=== PATIENT | male | born 1985 | race Caucasian/White ===

== ENCOUNTER 2016-11-30 10:43 | Emergency (ER) | payer MEDICAID ==
[~2016-11-30] VITALS: Ht 175.3 cm; Wt 55.0 kg
[2016-11-30] MEDS ORDERED: ONDANSETRON HCL 4MG/2ML VIAL IV STA (15:53)
[2016-11-30] MEDS ORDERED: MORPHINE SULFATE 4 MG/ML CPJ (NOT FOR IM USE) IV STA (15:53)
[2016-11-30] MEDS ORDERED: SODIUM CHLORIDE 0.9% 1,000 ML IV ONE (15:53)
[2016-11-30 16:20] LABS: BASOPHILS % 0.9 % (0.0-2.0); EOSINOPHILS % 2.2 % (0.0-5.0); HEMATOCRIT. 44.2 % (42.0-52.0); HEMOGLOBIN. 15.3 g/dL (14.0-18.0); LYMPHOCYTES % 32.1 % (20.0-50.0); MEAN CORPUSCULAR VOLUME 89.4 fL (80.0-94.0); MEAN PLATELET VOLUME 7.6 fl (7.4-10.4); MONOCYTES % 5.9 % (2.0-8.0); NEUTROPHILS % 58.9 % (40.0-76.0); PLATELET 220 x1000/uL (130-400); RED BLOOD CELL COUNT 4.94 mill/uL (4.7-6.1)
[2016-11-30 16:28] LABS: INR 1.1; PROTHROMBIN TIME 11.3 sec
[2016-11-30 16:35] LABS: CARBON DIOXIDE 28 mEq/L (21-32); CHLORIDE 104 mEq/L (98-107)
[2016-11-30 18:19] LABS: GLUCOSE URINE NEGATIVE (NEGATIVE); KETONES URINE NEGATIVE (NEGATIVE); LEUKOCYTE ESTERASE URINE NEGATIVE (NEGATIVE); NITRITE URINE NEGATIVE (NEGATIVE); OCCULT BLOOD URINE NEGATIVE (NEGATIVE); PROTEIN URINE NEGATIVE (NEGATIVE); SPECIFIC GRAVITY URINE 1.018 (1.005-1.030)
[2016-11-30 18:22] LABS: CLARITY URINE CLEAR (CLEAR); COLOR URINE YELLOW (YELLOW)
[2016-11-30] MEDS ORDERED: DICYCLOMINE 10 MG/5 ML ORAL SYR PO STA (18:38)
[2016-11-30] MEDS ORDERED: MAGNESIUM/ALUMINUM HYDROXIDE/SIMETHICONE 30ML UDC PO STA (18:38)
[2016-11-30] MEDS ORDERED: VISCOUS LIDOCAINE 2% 15 ML UDC PO STA (18:38)
[2016-11-30 19:07] VITALS: BP 95/64
== END 2016-11-30 19:22 | disposition home or self-care (01) ==
LOC: ER 15:50
DX: A08.4 Viral intestinal infection, unspecified (principal); F12.10 Cannabis abuse, uncomplicated
CPT/HCPCS: 36415; 76705; 80053; 81003; 83690; 85025; 85610; 96361; 96374; 96375; 99285; J2270; J2405; J7030; Z7610

== ENCOUNTER 2017-04-23 09:58 | Emergency (ER) | payer MEDICAID ==
[~2017-04-23] VITALS: Ht 175.3 cm; Wt 55.0 kg
[2017-04-23] MEDS ORDERED: ONDANSETRON HCL 4MG/2ML VIAL IV STA (12:07)
[2017-04-23] MEDS ORDERED: VISCOUS LIDOCAINE 2% 15 ML UDC PO STA (12:07)
[2017-04-23] MEDS ORDERED: MAGNESIUM/ALUMINUM HYDROXIDE/SIMETHICONE 30ML UDC PO STA (12:07)
[2017-04-23] MEDS ORDERED: KETOROLAC 30MG/ML VIAL IV STA (12:07)
[2017-04-23] MEDS ORDERED: SODIUM CHLORIDE 0.9% 1,000 ML IV ONE (12:07)
[2017-04-23] MEDS ORDERED: DICYCLOMINE 10 MG/5 ML ORAL SYR PO STA (12:07)
[2017-04-23 14:00] VITALS: BP 116/70
== END 2017-04-23 14:04 | disposition home or self-care (01) ==
LOC: ER 09:58
DX: K52.9 Noninfective gastroenteritis and colitis, unspecified (principal); R11.2 Nausea with vomiting, unspecified; F12.10 Cannabis abuse, uncomplicated
CPT/HCPCS: 96361; 96374; 96375; 99284; J1885; J2405; J7030; Z7610

== ENCOUNTER 2017-09-03 11:30 | Emergency (ER) | payer MEDICAID ==
[~2017-09-03] VITALS: Ht 175.3 cm; Wt 57.0 kg
[2017-09-03] MEDS ORDERED: IBUPROFEN 800MG TABLET PO ONE (12:00)
[2017-09-03] MEDS ORDERED: CYCLOBENZAPRINE 10MG TABLET PO ONE (16:15)
[2017-09-03] MEDS ORDERED: ACETAMINOPHEN 325MG TABLET PO ONE (16:15)
[2017-09-03 17:13] VITALS: BP 110/69
== END 2017-09-03 17:15 | disposition home or self-care (01) ==
LOC: ER 14:00
DX: S29.012A Strain of muscle and tendon of back wall of thorax, initial encounter (principal); X50.1XXA Overexertion from prolonged static or awkward postures, initial encounter; Y93.H3 Activity, building and construction; Y92.9 Unspecified place or not applicable
CPT/HCPCS: 99284

== ENCOUNTER 2018-01-08 07:25 | Emergency (ER) | payer MEDICAID ==
[~2018-01-08] VITALS: Ht 175.3 cm; Wt 60.0 kg
[2018-01-08 08:36] LABS: BASOPHILS % 0.8 % (0.0-2.0); EOSINOPHILS % 9.1 % (0.0-5.0); HEMATOCRIT. 45.3 % (42.0-52.0); HEMOGLOBIN. 15.5 g/dL (14.0-18.0); LYMPHOCYTES % 22.6 % (20.0-50.0); MEAN CORPUSCULAR HEMOGLOBIN 31.4 pg (28.0-32.0); MEAN CORPUSCULAR VOLUME 91.6 fL (80.0-94.0); MEAN PLATELET VOLUME 7.3 fl (7.4-10.4); MONOCYTES % 7.3 % (2.0-8.0); NEUTROPHILS % 60.2 % (40.0-76.0); PLATELET 245 x1000/uL (130-400); RED BLOOD CELL COUNT 4.94 mill/uL (4.7-6.1); RED CELL DISTRIBUTION WIDTH 13.6 % (11.6-14.6)
[2018-01-08 08:37] LABS: CLARITY URINE CLEAR (CLEAR); COLOR URINE YELLOW (YELLOW); KETONES URINE NEGATIVE (NEGATIVE); LEUKOCYTE ESTERASE URINE NEGATIVE (NEGATIVE); NITRITE URINE NEGATIVE (NEGATIVE); OCCULT BLOOD URINE NEGATIVE (NEGATIVE); PH URINE 5.5 (4.5-8.0); PROTEIN URINE TRACE (NEGATIVE)
[2018-01-08 08:42] LABS: CHLORIDE 105 mEq/L (98-107)
[2018-01-08 08:44] LABS: INR 1.1; PROTHROMBIN TIME 10.6 sec (9.1-11.1)
[2018-01-08 09:13] LABS: *BARBITURATES SCREEN URINE NEGATIVE (NEGATIVE); *BENZODIAZEPINES SCREEN URINE NEGATIVE (NEGATIVE); *COCAINE SCREEN URINE NEGATIVE (NEGATIVE); METHADONE URINE SCREEN NEGATIVE (NEGATIVE); OPIATES URINE SCREEN NEGATIVE (NEGATIVE)
[2018-01-08 09:14] LABS: *AMPHETAMINES SCREEN URINE NEGATIVE (NEGATIVE); CANNABINOID URINE SCREEN PRESUMTIVE POSITIVE (NEGATIVE); PHENCYCLIDINE URINE SCREEN NEGATIVE (NEGATIVE)
[2018-01-08 09:57] VITALS: BP 104/66
== END 2018-01-08 10:30 | disposition home or self-care (01) ==
LOC: ER 07:25
DX: R10.84 Generalized abdominal pain (principal); R11.0 Nausea; R19.7 Diarrhea, unspecified
CPT/HCPCS: 36415; 76770; 80053; 80305; 81003; 83690; 85025; 85610; 99285; Z7610

== ENCOUNTER 2019-01-28 07:33 | Emergency (ER) | payer MEDICAID ==
[~2019-01-28] VITALS: Ht 175.3 cm; Wt 61.0 kg
[2019-01-28] MEDS ORDERED: KETOROLAC 30MG/ML VIAL IM ONE (08:30)
[2019-01-28] MEDS ORDERED: HYDROCODONE/ACETAMINOPHEN 5/325MG TABLET PO ONE (08:30)
[2019-01-28 09:54] VITALS: BP 121/75
== END 2019-01-28 10:05 | disposition home or self-care (01) ==
LOC: ER 07:33
DX: M54.41 Lumbago with sciatica, right side (principal)
CPT/HCPCS: 72100; 96372; 99283; J1885

== ENCOUNTER 2020-07-18 13:59 | Emergency (ER) | payer MEDICAID ==
[~2020-07-18] VITALS: Ht 170.2 cm; Wt 59.0 kg
[2020-07-18] MEDS ORDERED: IBUP-2028 MT (16:30)
[2020-07-18 16:38] VITALS: BP 113/73
== END 2020-07-18 16:38 | disposition home or self-care (01) ==
LOC: ER 13:59
DX: S09.8XXA Other specified injuries of head, initial encounter (principal); R07.89 Other chest pain; R53.1 Weakness; V43.02XA Car driver injured in collision with other type car in nontraffic accident, initial encounter; Y93.84 Activity, sleeping; Y92.488 Other paved roadways as the place of occurrence of the external cause; Z90.89 Acquired absence of other organs
CPT/HCPCS: 71045; 99284